=== PATIENT | female | born 1960 | race Caucasian/White ===

== ENCOUNTER 2020-05-24 06:50 | Emergency (ER) | payer BC, SELFPAY ==
[2020-05-24 06:55] VITALS: BP 117/73; PULSE 62; RESP 18; TEMP 36.4; O2SAT 98
--- NOTE | 2020-05-24 06:57 | ED.GENADUL_ITS ---
Discharge Plan Disposition Patient Disposition: HOME Condition: Stable Discharge Details Chief Complaint: RashLesion Clinical Impression: Shingles ED Provider: Darian Centeno Home Meds and New Rx's Prescriptions: New prednisone 20 mg tablet 60 mg PO DAILY 4 Days Qty: 12 RF: 0 valacyclovir [Valtrex] 1 gram tablet 1,000 mg PO Q8H Qty: 21 RF: 0 No Action No Known Home Meds RF: 0 Discharge Instructions Instructions: Shingles (ED) Additional Instructions: you can use tylenol, ibuprofen and lidocaine patches for pain as needed for itching you can use topical hydrocortisone if you have severe worsening pain, fevers difficulty breathing return to the emergency department Medical Decision Making 60 yo female comes in with rash on left upper abdomen for 2 days that is itching and mildly painful, no fevers or sytemic symptoms. She has 3 vesciular patches on erythema that is consistent with shingles, no sloughing or mucous membrane involvement, will start antivirals and prednisone, return precautions given Differential Diagnosis Differential Diagnosis: shingles, dermatitis HPI General Mode of arrival: ambulatory . Date/Time Provider Initiated Documentation: 05/24/20 06:51 . Limitations to Documentation: no limitations . Information obtained by: patient . History of Present Illness 60 year old F presents to the emergency department with the chief complaint of rash, described as moderate, Patient started experiencing this day(s) (2) and it has been constant. No relieving factors improve symptom(s), No exacerbating factors reported . Patient notes no other symptoms.. Related Data Home Medications Medication Instructions Recorded Confirmed Unknown [No Known Home Meds] 05/24/20 05/24/20 prednisone 60 mg PO DAILY 4 Days #12 tab 05/24/20 valacyclovir [Valtrex] 1,000 mg PO Q8H #21 tab 05/24/20 Previous Rx's Medication Instructions Recorded prednisone 60 mg PO DAILY 4 Days #12 tab 05/24/20 valacyclovir [Valtrex] 1,000 mg PO Q8H #21 tab 05/24/20 Allergies Allergy/AdvReac Type Severity Reaction Status Date / Time No Known Allergies Allergy Unverified 05/24/20 06:59 Review of Systems All systems reviewed & are unremarkable except as noted in HPI and below Constitutional Constitutional: Denies chills, Denies fever(s) and Denies weakness Cardiovascular Cardiovascular: Denies chest pain and Denies dyspnea Respiratory Respiratory: Denies cough and Denies dyspnea Gastrointestinal Gastrointestinal: Denies abdominal pain, Denies nausea and Denies vomiting Genitourinary Genitourinary: Denies dysuria Musculoskeletal Musculoskeletal: Denies joint swelling Neurologic Neurologic: Denies weakness Psychiatric Psychiatric: Denies depression PFSH Social History Smoking/Tobacco Use Status: Former Tobacco Use Alcohol Intake: current Alcohol Intake frequency: 3 or more drinks per day Drug use: Never Substance use type: does not use Do you feel safe at home: Yes Do you feel safe in your relationship?: Yes Exam Const General: no acute distress Orientation: alert HENMT Head: normal to inspection Ears: external ears normal General nose exam: external nose normal Mouth: moist mucous membranes Eyes General: appearance normal, both eyes and all related structures Neck Neck: normal visual inspection Resp Effort & Inspection: normal respiratory effort and able to speak in complete sentences Cardio Rate: regular rate Skin General skin exam: elasticity normal Neuro General: patient alert and patient oriented x3 Extrem General: normal to inspection Psych Mental Status: mental status grossly normal
== END 2020-05-24 07:07 | disposition home or self-care (01) ==
LOC: ER 08:54
PROVIDERS: Emergency Provider Emergency Medicine
DX: B02.9 Zoster without complications (principal)
CPT/HCPCS: 99283

== ENCOUNTER 2020-06-18 19:17 | Emergency (ER) | payer BC, SELFPAY ==
[2020-06-18 19:27] VITALS: BP 119/79; PULSE 55; RESP 18; TEMP 36.8; O2SAT 99
[2020-06-18 19:32] VITALS: RESP 16
--- NOTE | 2020-06-18 20:03 | NUR.NOTE ---
Nursing Note: REFERAL COPY PUT IN CM BOX 06/18/20
--- NOTE | 2020-06-18 20:08 | ED.GENADUL_ITS ---
Discharge Plan Disposition Patient Disposition: HOME Condition: Good Discharge Details Chief Complaint: GenMedical Clinical Impression: Shingles, Nerve pain Primary Care Provider: Xuan,Local ED Provider: Yung Pal Home Meds and New Rx's Prescriptions: New gabapentin [Neurontin] 300 MG capsule 300 mg PO TID Qty: 90 RF: 0 capsaicin 0.1 % cream 1 applic TP BID Qty: 42.5 RF: 0 No Action No Known Home Meds RF: 0 Discharge Instructions Instructions: Shingles (ED) Additional Instructions: Please take the capsaicin cream as directed. If you do not have any improvement with this please take the gabapentin as directed. We have placed a referral for you for a new primary care provider in this area. He should be contacted by their office or our resident care manager the next 1 to 2 weeks. If you notice any worsening of your symptoms, or any new symptoms such as vomiting, diarrhea, fever, chills, shortness of breath, chest pain, numbness, weakness, or fainting , please return immediately to the emergency department for reevaluation. Please follow up with your primary care provider as soon as possible for reassessment and reevaluation. As always, it was a pleasure participating in your medical care today. Discharge Data Discharge Date/Time-TO BE ENTERED AT DEPARTURE: 06/18/20 20:20 Medical Decision Making This is a pleasant 60-year-old female no significant past medical history who presents today for evaluation of left-sided skin burning and pain. Patient states that she did have shingles over the past month, this resolved, the rash is nearly completely abated, however now she has intermittent burning and stabbing pain in the skin itself. She denies any actual chest pain, chest tightness, significant arm neck or shoulder pain. She denies any bandlike sensation around the chest. She denies any history of cardiac disease, or any family history of cardiac disease. She denies any concerning red flags of hypertension, high cholesterol, or diabetes. Pain is made worse with palpation of the skin, and is improved with exercise, exertion, and stretching and time. She denies any trauma. No other complaints at this time. No other modifying factors. No history of tobacco abuse. She has been using topical hydrocortisone cream which she states has not significantly changed her symptoms. She is currently residing up here in [place] although she normally lives in [place]. She does not have a PCP in this area. The symptoms are in her left chest region which was the location of the rash. Rash is notably benign, and appears to show evidence of nearly completely healed post shingles rash on the left-hand side. 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 Signs and symptoms clinically inconsistent with cardiac ACS. Will prescribe capsaicin ointment, as well as gabapentin. Will set up for PCP. I have extensively reviewed the treatment plan and discharge instructions with the patient. I have addressed all patient concerns at this time. The patient was made aware of what symptoms to monitor for that would warrant a return to the emergency department. Discussed the plan with the patient, they demonstrate verbal understanding and agreement with our assessment and plan at this time. HPI General Date/Time Provider Initiated Documentation: 06/18/20 19:37 . HPI Narrative: This is a pleasant 60-year-old female no significant past medical history who presents today for evaluation of left-sided skin burning and pain. Patient states that she did have shingles over the past month, this resolved, the rash is nearly completely abated, however now she has intermittent burning and stabbing pain in the skin itself. She denies any actual chest pain, chest tightness, significant arm neck or shoulder pain. She denies any bandlike sensation around the chest. She denies any history of cardiac disease, or any family history of cardiac disease. She denies any concerning red flags of hypertension, high cholesterol, or diabetes. Pain is made worse with palpation of the skin, and is improved with exercise, exertion, and stretching and time. She denies any trauma. No other complaints at this time. No other modifying factors. No history of tobacco abuse. She has been using topical hydrocor tisone cream which she states has not significantly changed her symptoms. She is currently residing up here in [place] although she normally lives in [place]. She does not have a PCP in this area. The symptoms are in her left chest region which was the location of the rash. Related Data Home Medications Medication Instructions Recorded Confirmed Unknown [No Known Home Meds] 05/24/20 06/18/20 capsaicin 1 applic TP BID #42.5 gm 06/18/20 gabapentin [Neurontin] 300 mg PO TID #90 cap 06/18/20 Previous Rx's Medication Instructions Recorded capsaicin 1 applic TP BID #42.5 gm 06/18/20 gabapentin [Neurontin] 300 mg PO TID #90 cap 06/18/20 Allergies Allergy/AdvReac Type Severity Reaction Status Date / Time No Known Allergies Allergy Unverified 05/24/20 06:59 General Stated Complaint: GenMedical TATO: 4 Review of Systems All systems reviewed & are unremarkable except as noted in HPI and below PFSH Social History Smoking/Tobacco Use Status: Former Tobacco Use Alcohol Intake: current Alcohol Intake frequency: 3 or more drinks per day Drug use: Never Substance use type: does not use Do you feel safe at home: Yes Do you feel safe in your relationship?: Yes Exam Narrative Exam Narrative: 1.Const: Well-nourished, Well-developed, appearing stated age 2.Eyes: PERRL, no conjunctival injection, and symmetrical lids. 3.ENT: Atraumatic external nose and ears. Moist MM. Neck: Symmetric, trachea midline, No thyromegaly. 4.CVS: +S1/S2, No murmurs or gallops. Peripheral pulses 2+ and equal in all extremities. Brisk capillary refill in all extremities. 5.RESP: Unlabored respiratory effort. Clear to auscultation bilaterally. No wheezes rales or rhonchi 6.GI: Soft, Nontender/Nondistended, No hepatosplenomegaly. No guarding or rebound. 7.MSK: Normocephalic/Atraumatic, Extremities w/o deformity or ttp No cyanosis or clubbing, Normal movement of all extremities 8.Skin: Warm, Dry. No rashes or lesions. There is evidence of a well-healed shingles rash in probably the T6 or T7 dermatome on the left wrapping around from the back to the midline. No extension past midline. Lesions are nearly completely rel well-healed with only minimal evidence of residual pigmenting of skin. No other abnormalities. Negative Nikolsky sign. No large vesicles or bulla. No palpable purpura. No oral lesions. No mucosal lesions. No evidence of severe cellulitis. No evidence of vaccine preventable rash. 9.Neuro: energy management specialist II-XII grossly intact. Sensation grossly intact, no focal neurologic deficits. 10.Psych: (AAO) x3. Appropriate mood and affect Course Vital Signs Vital signs: Vital Signs Temperature 36.8 C 06/18/20 19:27 Pulse 55 L 06/18/20 19:27 Respiratory Rate 18 06/18/20 19:27 Blood Pressure 119/79 06/18/20 19:27 Pulse Oximetry 99 06/18/20 19:27 Temperature 36.8 C 06/18/20 19:27 Temperature Source Skin 06/18/20 19:27 Pulse 55 L 06/18/20 19:27 Respiratory Rate 16 06/18/20 19:32 Respiratory Effort 06/18/20 19:32 Respiratory Depth Normal 06/18/20 19:32 Respiratory Pattern Normal 06/18/20 19:32 Blood Pressure 119/79 06/18/20 19:27 Blood Pressure Position Sitting 06/18/20 19:27 Pulse Oximetry 99 06/18/20 19:27 Oxygen Delivery Method Room Air 06/18/20 19:27 Oxygen Flow Rate 0 06/18/20 19:27 Pain Level 4 06/18/20 19:27
[2020-06-18 20:22] VITALS: BP 119/79; PULSE 55; RESP 16; TEMP 36.8; O2SAT 99
== END 2020-06-18 20:20 | disposition home or self-care (01) ==
LOC: ER 20:24
PROVIDERS: Emergency Provider Student in an Organized Health Care Education/Training Program
DX: B02.9 Zoster without complications (principal)
CPT/HCPCS: 99283

== ENCOUNTER 2020-09-23 03:04 | Outpatient (CLI) | payer BC, SELFPAY ==
[2020-09-23 17:37] LABS: Hemoglobin A1C 5.5 % (<5.7)
[2020-09-23 18:25] LABS: Calculated LDL 130 mg/dL (<100); Cholesterol 252 mg/dL (<200); HDL Cholesterol 98 mg/dL (40-60); Triglyceride 123 mg/dL (<150)
== END 2020-09-23 03:24 ==
PROVIDERS: PCP Nurse Practitioner; Visit Provider Nurse Practitioner
DX: Z13.1 Encounter for screening for diabetes mellitus (principal); Z13.6 Encounter for screening for cardiovascular disorders
CPT/HCPCS: 36415; 80061; 83036

== ENCOUNTER 2020-11-10 00:07 | Outpatient (CLI) | payer BC, SELFPAY ==
--- NOTE | 2020-11-10 09:22 | DI.MAMMO_ITS ---
EXAM: MG MAMMO SCREENING CLINICAL HISTORY: screening,Z12.39 TECHNIQUE: Bilateral full field digital CC and MLO mammographic images were obtained with 3D tomosyn thesis and utilizing computer aided detection (CAD). COMPARISON: Available for comparison. FINDINGS: Masses/Architectural Distortion: None seen. Microcalcifications: No suspicious pleomorphic-type are seen. Skin Thickening/Nipple Retraction: None. IMPRESSION: 1. No significant interval change with no specific features of malignancy noted. 2. Unless there is more urgent need, screening mammography is recommended, as per [place] [employer] guidelines. BI-RADS Category 1 - Negative Breast Density - Category C - Heterogeneously dense Breast density category C or D implies that the patient has dense breast tissue. Dense breast tissue is very common and is not abnormal but dense breast tissue can make it harder to find cancer on a ma mmogram. Also, dense breast tissue may increase their breast cancer risk. This information about the result of the mammogram report was provided to the patient to raise their awareness. Use this report when you speak with the patient about their risks for breast cancer, which includes their family hist ory. At that time, you may recommend for more screening tests (Ultrasound or MRI) as they might be us eful based on their risk. A negative radiographic report should not delay biopsy if a dominant or clinically suspicious mass is present. Up to ten percent of cancers are not identified on mammography. A negative report may reinforce clinical impression. Adenosis and dense breasts may obscure an underlying neoplasm. False positive reports average 6 to 10%. Patient will receive a letter notifying them of these results.
== END 2020-11-10 00:27 ==
PROVIDERS: PCP Nurse Practitioner; Visit Provider Nurse Practitioner
DX: Z12.31 Encounter for screening mammogram for malignant neoplasm of breast (principal)
CPT/HCPCS: 77063; 77067

== ENCOUNTER 2020-11-19 03:29 | Outpatient (CLI) | payer BC, SELFPAY ==
[2020-11-21 15:56] LABS: COVID-19 RT-PCR UVMMC Result Negative (Negative)
== END 2020-11-19 03:49 ==
PROVIDERS: PCP Nurse Practitioner; Visit Provider Surgery
DX: Z11.59 Encounter for screening for other viral diseases (principal); Z01.818 Encounter for other preprocedural examination
CPT/HCPCS: U0003

== ENCOUNTER 2020-11-23 07:00 | Day surgery (SDC) | payer BC, SELFPAY ==
--- NOTE | 2020-11-23 06:55 | W.COLOREPORT ---
Date of service: 11/23/20 Time of Service: 08:12 Colonoscopy Report Date of procedure: 11/23/20 Pre-op diagnosis general: Hx of polyps Post-op diagnosis procedure note: same Procedure: Colonoscopy with polypectomy Surgeon: Elizabeth Bhakta Anesthesia proc note operative: other (General/ASA 2/Rupinder Pike, MONIE) Estimated blood loss (mL): 3 Pathology: other (Sigmoid polyp, transverse polyps x2) Complications: None Disposition: same day Indications: The patient is here for Colonoscopy pre-op. Her last screening was in 2013 and was unremarkable. Colonoscopy from 2011 was remarkable for a single tubular adenomatous polyp. She has no family history of colon cancer. She has not had any bowel habit changes. -Discussed colonoscopy bowel prep as well as the procedure. Discussed possible complications of the procedure to include bleeding, pain, perforation, missed small lesion/polyp, sore throat, aspiration and adverse reaction to the medications. Questions were answered to patient?s satisfaction. No guarantees were implied or given. Prep: Miralax/Dulcolax Procedure Start Time: 08:12 Procedure End Time: 08:40 Retraction Time: 16 minutes Findings: 3 small sessile polyps Procedure Description: After informed consent was obtained the patient was taken to the procedure room and placed in a left decubitous position. Monitors were applied and a time out was done. The patients name, date of , procedure, allergies to medications and metal in their body was reviewed. The patient was then sedated. Once sedated and comfortable a rectal exam was done. External exam was normal. Internal exam revealed a normal sphincter tone and no palpable masses. The scope was then introduced and retro-flexed. No internal hemorrhoids were identified. The scope was then advanced to the cecum without difficulty. The ileocecal valve and appendiceal orifice were identified. The prep was good. The scope was then slowly retracted over 16 minutes back into the rectum. Polyps were removed with cold forceps in the proximal transverse colon, distal transverse colon and sigmoid colon. The scope was removed and the patient was woken up and taken back to Same day surgery in stable condition. The patient tolerated the procedure well and there were no immediate complications. Follow up: The patient should follow up in 3-5 years unless they develop changes in bowel habits or other new gastrointestinal complaints.
--- NOTE | 2020-11-23 06:56 | W.PM.DSUDISC ---
Discharge Plan Disposition Patient Disposition: HOME Condition: Good Discharge Details Reason For Visit: colonoscopy Attending Provider: Elizabeth Bhakta Primary Care Provider: Camille Huertas Home Meds and New Rx's Prescriptions: Continued cholecalciferol (vitamin D3) 25 mcg (1,000 unit) capsule 25 mcg PO DAILY RF: 0 Discontinued polyethylene glycol 3350 17 gram/dose powder 238 g PO ONCE Qty: 238 RF: 0 bisacodyl [Dulcolax (bisacodyl)] 5 mg tablet,delayed release (DR/EC) 5 mg PO ONCE Qty: 4 RF: 0 Discharge Instructions Instructions: Colorectal Polyps (DC) Additional Instructions: Findings: 3 small polyps Follow up: 3-5 years Please call if you develop: fevers >101.5 Nausea or Vomiting Abdominal pain that is not transient DAY SURGERY UNIT POST ENDOSCOPY INSTRUCTIONS 1. Because there will be medication in your system for the next 24 hours, you may feel a little sleepy. Your coordination will be affected. Therefore: a. Do not drive or operate dangerous equipment for 24 hours. b. Do not drink alcohol beverages for 24 hours (not even beer). c. Plan to go home and rest for the day. 2. Generally there are no restrictions on your activity after a day or so has gone by, but you may feel a bit fatigued for a few days. 3 After you arrive home you may have a light meal and return to a normal diet as you can tolerate it without feeling sick to your stomach. 4. After surgery, you may feel pain or discomfort. This should be only transient, but if it persists please contact your doctor. 5. If there are any questions regarding the findings of your procedure, please feel free to contact your doctor. 6. If you are unable to contact your doctor with a problem, contact the hospital at [phone]. 7. Continue all your regular medications unless directed otherwise. I understand the above instructions and have no questions. Signature of Patient or Responsible Adult Escort Date/Time Name of Responsible Adult Escort Signature of Nurse Date/Time Activity:: Activity as Tolerated Diet:: As Tolerated Discharge Orders Discharge Orders: Discharge Order (Routine); Ordered 11/23/20 Ordered By: Elizabeth Bhakta
[2020-11-23 07:07] VITALS: BP 101/60; PULSE 55; RESP 18; TEMP 36.6; O2SAT 99
[2020-11-23] MEDS: Lactated Ringers 1,000 ML 80 ML IV (07:34)
--- NOTE | 2020-11-23 08:20 | BOWEL_PTH ---
PATIENT: Carole Gill LOC: [facility] U#:[id number] AGE/SX: 60/F ROOM: RE11/23/[address]: Elizabeth Bhakta MD : 1960 BED: DIS: 11/23/2020 SPEC #: [id number] RECD: 11/23/20 12:40 STATUS: CHRISTIANO RE #: [id number] ELVA: 11/23/20 08:[address]: Elizabeth Bhakta DEPT: Surgical Specimen RECD BY: Bernadette Moreno ENTERED: 11/23/20 12:41 SP TYPE: Bowel OTHR DR: Camille Huertas, PhD [employer] STILL OPERATOR Tissues: 1 - BIOPSY BOWEL 2 - BIOPSY BOWEL 3 - BIOPSY BOWEL Procedures: GROSS AND MICRO LEVEL 4 Comments: [id number]
[2020-11-23 09:11] VITALS: BP 102/64; PULSE 83; RESP 16; TEMP 36.5; O2SAT 99
== END 2020-11-23 09:30 | disposition home or self-care (01) ==
LOC: SUR 07:00
PROVIDERS: PCP Nurse Practitioner; Visit Provider Surgery
PROC: 0DJD8ZZ Inspection of Lower Intestinal Tract, Via Natural or Artificial Opening Endoscopic (ICD-10-PCS; CPT 45378; principal; 2020-11-23 08:30)
DX: Z12.11 Encounter for screening for malignant neoplasm of colon (principal); Z86.011 Personal history of benign neoplasm of the brain; D12.3 Benign neoplasm of transverse colon
CPT/HCPCS: 45380; 88305; J2001

== ENCOUNTER 2021-03-22 09:06 | Outpatient (REF) | payer BC, SELFPAY ==
--- NOTE | 2021-03-22 08:45 | PAPFT_PTH ---
PATIENT: Carole Gill LOC: [facility] U#:[id number] AGE/SX: 60/F ROOM: RE03/22/[address]: ROMEO Patterson : 1960 BED: DIS: 03/22/2021 SPEC #: [id number] RECD: 03/22/21 18:34 STATUS: CHRISTIANO REAwais #: [id number] ELVA: 03/22/21 08:[address]: Loida Madison DEPT: [facility] Cytology RECD BY: Bernadette Moreno ENTERED: 03/22/21 18:34 SP TYPE: PAPFT AMY DR: Camille Huertas, PhD HAM STRINGER Tissues: 1 - CX/ENDOCX FOR PAP SMEARS Procedures: PAP THIN PREP/[facility] Screening HPV DNA PROBE Comments: [id number]
== END 2021-03-22 09:07 | disposition home or self-care (01) ==
LOC: LBN 09:06
PROVIDERS: PCP Nurse Practitioner; Visit Provider Nurse Practitioner Family
DX: Z12.4 Encounter for screening for malignant neoplasm of cervix (principal); Z11.51 Encounter for screening for human papillomavirus (HPV)
CPT/HCPCS: 88142; 87624

== ENCOUNTER 2021-03-30 03:39 | Outpatient (CLI) | payer BC, SELFPAY ==
[2021-03-30 09:30] LABS: ALT 30 U/L (14-59); AST 28 U/L (15-37); Albumin 4.3 g/dL (3.4-5.0); Alkaline Phosphatase 98 U/L (46-116); Bilirubin, Direct 0.1 mg/dL (0.0-0.2); Bilirubin, Total 0.5 mg/dL (0.2-1.0); Total Protein 7.4 g/dL (6.4-8.2)
[2021-03-31 11:39] LABS: Hepatitis A Antibody IgM Negative (Negative); Hepatitis B Core Antibody Negative (Negative); Hepatitis B surface Ag Negative (Negative); Hepatitis C Ab w Rflx HCV PCR Negative (Negative)
== END 2021-03-30 03:40 | disposition home or self-care (01) ==
LOC: LBO 03:39
PROVIDERS: PCP Nurse Practitioner; Visit Provider Nurse Practitioner
DX: Z00.00 Encounter for general adult medical examination without abnormal findings (principal); Z11.59 Encounter for screening for other viral diseases
CPT/HCPCS: 36415; 80076; 86704; 86709; 86803; 87340

== ENCOUNTER → 2022-05-06 00:21 | Outpatient (CLI) | payer BC, SELFPAY ==
--- NOTE | 2022-05-06 08:08 | DI.RAD_ITS ---
Exam(s) XR HIP LT COMPLETE AP PELVIS EXAM: XR HIP LT COMPLETE AP PELVIS CLINICAL HISTORY: LT HIP PAIN, M25.552 TECHNIQUE: COMPARISON: No exams were available for comparison FINDINGS: Two views were obtained. The cartilaginous joint spaces of the hips may be minimally narrowed bilate rally superiorly. Minimal marginal osteophyte for may garcía of the acetabulum noted bilaterally. Fem oral heads are well maintained bilaterally. There are minimal degenerative changes of the SI joints. 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 RADIATION DOSE DELIVERED: Total DLP
== END ==
PROVIDERS: PCP Nurse Practitioner; Visit Provider Nurse Practitioner
DX: M16.0 Bilateral primary osteoarthritis of hip (principal)
CPT/HCPCS: 73502

== ENCOUNTER 2023-05-05 03:10 | Outpatient (CLI) | payer BC, SELFPAY ==
[2023-05-05 16:52] LABS: Hemoglobin A1C 5.4 % (<5.7)
[2023-05-05 17:10] LABS: HCT 38.1 % (36.0-46.0); HGB 12.6 g/dL (11.2-15.7); MCH 30.7 pg (27.0-33.0); MCHC 33.1 % (32.0-36.0); MCV 93 fL (80-95); MPV 10.5 fL (8.0-11.0); Platelet Count 218 10^3/uL (130-400); RBC 4.11 10^6/uL (3.93-5.22); RDW 12.6 % (11.7-14.6); RDW-SD 42.7 fL; WBC 7.86 10^3/uL (4.4-10.8)
[2023-05-05 18:26] LABS: Anion Gap 5.9 mmol/L (3-11); BUN 17 mg/dL (7-18); CO2 30.1 mmol/L (21.0-32.0); Calcium 9.5 mg/dL (8.5-10.1); Calculated LDL 124 mg/dL (<100); Chloride 104 mmol/L (98-107); Cholesterol 230 mg/dL (<200); Estimated GFR 62.91 (mL/min/1.73m2); Glucose 74 mg/dL (74-106); HDL Cholesterol 98 mg/dL (40-60); Potassium 3.8 mmol/L (3.5-5.1); Sodium 140 mmol/L (136-145); Triglyceride 40 mg/dL (<150)
== END 2023-05-05 03:11 | disposition home or self-care (01) ==
LOC: LBO 03:10
PROVIDERS: PCP Nurse Practitioner Family; Visit Provider Nurse Practitioner Family
DX: Z00.00 Encounter for general adult medical examination without abnormal findings (principal); Z13.0 Encounter for screening for diseases of the blood and blood-forming organs and certain disorders involving the immune mechanism; Z13.1 Encounter for screening for diabetes mellitus; Z13.220 Encounter for screening for lipoid disorders; Z13.29 Encounter for screening for other suspected endocrine disorder
CPT/HCPCS: 36415; 80048; 80061; 85027; 83036; 84443

== ENCOUNTER 2023-11-30 11:19 | Day surgery (SDC) | payer MEDICARE, BC, SELFPAY ==
--- NOTE | 2023-11-30 09:25 | W.PM.DSUDISC ---
Date of service: 11/30/23 Time of Service: 09:25 Discharge Plan Disposition Patient Disposition: Home Condition: Good Discharge Details Reason For Visit: Screening colonoscopy Attending Provider: Nir Edwards Primary Care Provider: Georgina Fallon Home Meds and New Rx's Prescriptions: Discontinued bisacodyl [Dulcolax (bisacodyl)] 5 mg tablet,delayed release (DR/EC) 5 mg PO ONCE Qty: 4 0RF Rx Instructions: Colonoscopy Bowel Prep- Per Instructions polyethylene glycol 3350 17 gram/dose powder 238 g PO ONCE Qty: 238 0RF Rx Instructions: Colonoscopy Bowel Prep- Per Instructions No Action No Known Home Meds Discharge Instructions Instructions: Colorectal Polyps (GEN) Additional Instructions: Carole, we were able to complete your colonoscopy today without any difficulty. I did find for polyps, but all were quite small. I removed them all completely without any issues. Once I have the reports on the polyp pathology, I will be in touch with recommendations for your next colonoscopy 1. If tolerated, consume a soft, low fiber diet for 1-2 days. 2[address] Do not drive, drink alcohol, operate machinery, make critical decisions, or do activities that require coordination or balance for 24 hours. 3. Because air was put into your colon during the procedure, expelling air from your rectum (passing gas or farting) is normal. 4. You may not have a bowel movement for 1-3 days because of the colonoscopy prep. This is normal. 5. Go directly to the emergency room if you notice any of the following: Develop chills (warm to touch), or if you have a thermometer and your temperature is above 101 Difficulty breathing or difficultly swallowing Persistent vomiting Severe abdominal pain, other than gas cramps Severe chest pain Black, tarry stools Any bleeding ? exceeding one tablespoon 6. Call your physician if the site where your intravenous was started becomes red, swollen, painful, and warm to touch. 7. Your physician has reviewed your pre-procedure medications. Please continue to take those medications as previously ordered. You will be given specific information/education regarding any changes to your medications before leaving. Activity:: Activity as Tolerated Diet:: As Tolerated Discharge Orders Discharge Orders: Discharge Order (Routine); Ordered 11/30/23 Ordered By: Nir Edwards DS: Diagnosis Discharge Diagnosis (1) Screen for colon cancer: Status: Acute Asessment and Plan: Follow-up on polypectomy results
--- NOTE | 2023-11-30 09:27 | COLE_ITS ---
Date of service: 11/30/23 Time of Service: 13:39 Colonoscopy Report Date of procedure: 11/30/23 Pre-op diagnosis general: Screening colonoscopy Post-op diagnosis procedure note: other (Colorectal polyps) Procedure: Colonoscopy with polypectomy Surgeon: Nir Edwards Anesthesia Type: General:No Airway Estimated blood loss (mL): 10 Pathology: other (0.25 cm cecal polyp, 0.5 cm polyp at 55 cm, 0.25 cm polyp at 30 cm, 0.25 cm rectal polyp.) Complications: None Disposition: same day Indications: Carole is 63 years old. She has had a past medical history significant for tubular adenomas. She is here for her next screening colonoscopy Prep: Miralax/Dulcolax Procedure Start Time: 13:10 Procedure End Time: 13:32 Retraction Time: 16 Findings: 0.25 cm cecal polyp, 0.5 cm polyp at 55 cm, 0.25 cm polyp at 30 cm, 0.25 cm rectal polyp. Procedure Description: After the induction of monitored anesthetic care, and with the patient in left lateral decubitus position, I began by performing an external anorectal exam.? Perineum and skin were normal, as was the anal verge.? There was no evidence of external hemorrhoids.? Next, I performed a digital rectal exam.? I did not appreciate any abnormal findings.? Next, I advanced a colonoscope into the rectal vault.? I performed retroflexion.? This was normal.? Using insufflation, I then advanced the colonoscope beyond the rectal folds and into the sigmoid colon before advancing towards the cecum.? The scope was noted to be in the cecum by identification of the ileocecal valve and appendiceal orifice.? There was a less than 0.25 cm slightly pedunculated polyp in the cecum. I removed this with cold forceps without any issue. There was minimal bleeding here. I then began withdrawing the colonoscope using repeated irrigation as necessary for full evaluation of the colonic mucosa. Around 55 cm from the anal verge I identified a 0.5 cm polyp. ?It appeared flat in character. ?I was able to remove this with a cold forcep polypectomy. ?I examined the site, and there was minimal bleeding. ?Once this was completed, I continued to withdraw the scope and examine the remainder of the colonic mucosa.? I also found polyps at 30 cm and 1 polyp within the rectum. Both of these were less than 0.25 cm. Both were mostly flat. I removed both of these polyps with cold forceps as well. Once the scope was withdrawn to the level of the rectum, great care was taken to examine portions of the rectal folds.? Finally, the scope was withdrawn and the patient was brought to the same-day surgery recovery unit as the anesthetic wore off. ?The findings and instructions were shared with the patient prior to discharge. [place] Bowel Prep [place] Bowel Prep Right Colon: 3 Left Colon: 3 Transverse Colon: 3 Total Score: 9
[2023-11-30 11:45] VITALS: BP 104/73; PULSE 61; RESP 16; TEMP 36.3; O2SAT 99
[2023-11-30] MEDS: Lactated Ringers 1,000 ML 80 ML IV (12:00)
--- NOTE | 2023-11-30 12:15 | W.ANESPRE ---
General Info Date of Service Date Performed: 11/30/23 Height: 5 ft 2 in Weight: 62.5 kg Body Mass Index (BMI): 25.2 Surgical Procedure: Operation Date: 11/30/23 13:05 Proposed Procedure Side Surgeon p Colonoscopy Nir Edwards MD Meds Allergies and Home Medications Allergies Allergy/AdvReac Type Severity Reaction Status Date / Time No Known Allergies Allergy Verified 11/30/23 12:10 Home Medication Medication Instructions Recorded Unknown [No Known Home Meds] 11/30/23 Current Visit Medications: Current Medications Generic Name Dose Route Start Last Admin Trade Name Freq PRN Reason Stop Dose Admin Hyoscyamine Sulfate 0.125 mg 11/30/23 09:30 Hyoscyamine 0.125 Mg Sl/Oral/Chew SL 12/30/23 09:29 DIRECTED PRN Ringer's Solution 1,000 mls @ 80 mls/hr 11/30/23 06:00 11/30/23 12:00 IV 12/29/23 23:59 80 mls/hr INFUSION YUNG Administration IV Miscellaneous Supplies 1 each 11/30/23 06:00 Iv Access IV 12/29/23 23:59 DIRECTED YUNG Ondansetron HCl 4 mg 11/30/23 09:30 Ondansetron 4 Mg/2 Ml Vial IVP 12/30/23 09:29 Q4H PRN PRN Nausea / Vomiting Sodium Chloride 0 ml 11/30/23 06:00 Normal Saline Flush 10 Ml Syr IV 12/29/23 23:59 PRN PRN Sodium Chloride 0 ml 11/30/23 06:00 Normal Saline 10 Ml Vial IJ 12/29/23 23:59 DIRECTED PRN Sterile Water 0 ml 11/30/23 06:00 Water,Injection,Sterile 10 Ml Vial IJ 12/29/23 23:59 DIRECTED PRN PFSH Active Problems Active Problems: Problem Status Onset Code Screen for colon cancer Z12.11 Bilateral sensorineural hearing loss H90.3 Medical History Medical History History of herpes simplex infection age 22 Left hip pain Tubular adenoma of colon (~10/2020) Sessile colonic polyp (~10/2020) Surgical History Surgical History Hx of colonoscopy Tobacco Smoking/Tobacco Use Status: Never Passive smoking exposure: Yes Second hand exposure: Yes Alcohol Alcohol Intake: current Alcohol intake frequency: 0-2 drinks per day Alcohol type: beer and wine Substance Use Substance use: Never Substance use type: does not use Details: Usually has 2 glasses of wine a night, but is currently doing a november Vital Signs and Lab Results Vital Signs Most Recent Vital Signs in EMR: Most Recent Vital Signs Temp Pulse Resp BP Pulse Ox 36.3 C L 61 16 104/73 99 11/30/23 11:45 11/30/23 11:45 11/30/23 11:45 11/30/23 11:45 11/30/23 11:45 Lab Results Blood Type / Crossmatch: No Data to Display Complete Blood Count: No Data to Display Complete Metabolic Panel: No Data to Display Liver Function Panel: No Data to Display Coagulation Panel: No Data to Display Cardiac Panel: No Data to Display Arterial Blood Gas: No Data to Display Venous Blood Gas: No Data to Display Pancreas Panel: No Data to Display Thyroid Panel: No Data to Display Infectious Disease: No Data to Display Blood Cultures: No Data to Display Toxicology Panel: No Data to Display Anesthesia Assessment and Plan Anesthesia History Personal History: No History of Anesthesia Complications Family History: No Family History of Anesthesia Complications Exercise Tolerance Exercise Tolerance: Metabolic Equivalents>4 Pertinent Negatives Pertinent Negatives: No Symptoms of GERD, No Major Cardiovascular Symptoms or Complaints and No Major Pulmonary Symptoms or Complaints Cardiac & Pulmonary Exam Cardiac Exam: Normal S1/S2 Heart Sounds Pulmonary Exam: Clear Bilateral Breath Sounds Implantable Cardiac Device Does patient have a Pacemaker or an ICD?: No Airway Exam Known Difficult Airway: No Mallampati Class: 2 Mouth Opening: Normal (> 3cm) Thyromental Distance: Greater than 3 cm Neck Range of Motion: Full ROM Neck Circumference: Normal Teeth Condition: Normal Dentition ASA Classification ASA Score: ASA 2 Emergency Case?: No NPO Status NPO Status: NPO Clears >2 hours, Solids >8 hours Anesthesia Plan Resuscitation Status: Full Code Anesthesia Technique: General Anesthesia Airway Planned: Natural Airway Monitors Used: Standard Monitors
[2023-11-30 12:17] VITALS: BMI 25.2
--- NOTE | 2023-11-30 13:20 | BOWEL_PTH ---
PATIENT: Carole Glil LOC: [facility] U#:[id number] AGE/SX: 63/F ROOM: RE11/30/[address]: Nir Edwards MD : [id number] BED: DIS: 11/30/2023 SPEC #: [id number] RECD: 11/30/23 16:22 STATUS: CHRISTIANO RE #: [id number] ELVA: 11/30/23 13:[address]: Nir Edwards DEPT: Surgical Specimen RECD BY: Bernadette Moreno ENTERED: 11/30/23 16:22 SP TYPE: Bowel OTHR DR: Georgina Fallon, VP PRODUCT Tissues: 1 - BIOPSY BOWEL 2 - BIOPSY BOWEL 3 - BIOPSY BOWEL 4 - BIOPSY BOWEL Procedures: GROSS AND MICRO LEVEL 4 Comments: [id number]
[2023-11-30 13:38] VITALS: BP 103/70; PULSE 66; RESP 16; TEMP 36.2; O2SAT 100
[2023-11-30 14:17] VITALS: BP 105/58; PULSE 67; RESP 16; TEMP 36.4; O2SAT 99
--- NOTE | 2023-11-30 15:15 | W.ANESPOSTOP ---
Postoperative Evaluation Date, Time and Location Date Performed: 11/30/23 Time Performed: 13:55 Patient Location: Day Surgery Unit Vital Signs Most Recent Imported Vital Signs: Most Recent Vital Signs Temp Pulse Resp BP Pulse Ox 36.4 C L 67 16 105/58 L 99 11/30/23 14:17 11/30/23 14:17 11/30/23 14:17 11/30/23 14:17 11/30/23 14:17 Pain Score Most Recent Pain Score: Most Recent Pain Score Pain Level 0 11/30/23 14:17 Assessment Mental Status: Awake (Alert & Oriented to Patient Baseline) Airway and Respiratory Function: Patent airway with normal (patient baseline) respiratory exam Cardiovascular Function: Hemodynamically Stable Hydration Status: Adequately Hydrated Nausea & Vomiting: No Nausea or Vomiting Pain: Pt. Denies Any Pain Peripheral Nerve Block: Patient did not receive a nerve block
== END 2023-11-30 15:05 | disposition home or self-care (01) ==
LOC: SUR 11:28
PROVIDERS: PCP Nurse Practitioner Family; Visit Provider Surgery
PROC: 0DJD8ZZ Inspection of Lower Intestinal Tract, Via Natural or Artificial Opening Endoscopic (ICD-10-PCS; CPT 45378; principal; 2023-11-30 13:00)
DX: Z12.11 Encounter for screening for malignant neoplasm of colon (principal); D12.0 Benign neoplasm of cecum; K63.89 Other specified diseases of intestine
CPT/HCPCS: 45380; 88305; J2001; J2704

== ENCOUNTER 2024-10-21 03:34 | Outpatient (CLI) | payer MEDICARE, BC, SELFPAY ==
[2024-10-21 08:36] LABS: Anion Gap 7.7 mmol/L (3-11); BUN 11 mg/dL (7-18); CO2 27.3 mmol/L (21.0-32.0); CREATININE 0.9 mg/dL (0.55-1.02); Calcium 9.1 mg/dL (8.5-10.1); Calculated LDL 113 mg/dL (<100); Chloride 105 mmol/L (98-107); Cholesterol 224 mg/dL (<200); Estimated GFR 70.51 (mL/min/1.73m2); Glucose 96 mg/dL (74-106); HDL Cholesterol 97 mg/dL (40-60); Potassium 4.1 mmol/L (3.5-5.1); Sodium 140 mmol/L (136-145); Triglyceride 72 mg/dL (<150)
== END 2024-10-21 03:35 | disposition home or self-care (01) ==
LOC: LBO 03:35
PROVIDERS: PCP Nurse Practitioner Family; Visit Provider Nurse Practitioner Family
DX: E78.5 Hyperlipidemia, unspecified (principal)
CPT/HCPCS: 36415; 80048; 80061

== ENCOUNTER 2024-10-24 01:44 | Outpatient (CLI) | payer MEDICARE, BC, SELFPAY ==
--- NOTE | 2024-10-24 07:45 | DI.DEXA_ITS ---
Exam(s) XR DEXA BONE DENSITY W/WO SHABANA EXAM: XR DEXA BONE DENSITY W/WO SHABANA CLINICAL HISTORY: screening FOR OSTEOPOROSIS IN POSTMENOPAUSAL STATUS,Z78.0 TECHNIQUE: COMPARISON: No exams were available for comparison FINDINGS: Lateral Spine Image: Unremarkable. No compression deformities identified. Left hip: Total T-Score: -1.1 Total Z-Score: 0.2 T- and Z-scores: Findings are consistent with osteopenia. No evidence of osteoporosis. Lumbar Spine: Total T-Score: -2.4. There is osteoporosis in the L4 vertebral body with a T-score of -2.7. Total Z-Score: -0.5 T- and Z-scores: There is osteoporosis seen in the L4 vertebral body. Left forearm: Osteoporosis is seen in the mid left forearm with a T-score of -2.5. IMPRESSION: Osteoporosis seen in the L4 vertebral body and the mid left forearm.
== END 2024-10-24 02:04 ==
LOC: DI 01:44
PROVIDERS: PCP Nurse Practitioner Family; Visit Provider Nurse Practitioner Family
DX: Z78.0 Asymptomatic menopausal state (principal); Z13.820 Encounter for screening for osteoporosis; M85.89 Other specified disorders of bone density and structure, multiple sites
CPT/HCPCS: 77080

== ENCOUNTER 2025-09-16 01:18 | Outpatient (CLI) | payer MEDICARE, BC, SELFPAY ==
[2025-09-16 08:23] LABS: ALT 26 U/L (14-59); AST 27 U/L (15-37); Albumin 3.7 g/dL (3.4-5.0); Alkaline Phosphatase 83 U/L (46-116); Anion Gap 6.3 mmol/L (3-11); BUN 18 mg/dL (7-18); Bilirubin, Total 0.5 mg/dL (0.2-1.0); CO2 30.7 mmol/L (21.0-32.0); Calcium 9.2 mg/dL (8.5-10.1); Calculated LDL 136 mg/dL (<100); Chloride 104 mmol/L (98-107); Cholesterol 231 mg/dL (<200); Estimated GFR 70.07 (mL/min/1.73m2); Glucose 90 mg/dL (74-106); HDL Cholesterol 85 mg/dL (>or=50); Potassium 4.0 mmol/L (3.5-5.1); Sodium 141 mmol/L (136-145); Total Protein 7.0 g/dL (6.4-8.2); Triglyceride 51 mg/dL (<150)
== END 2025-09-16 01:19 | disposition home or self-care (01) ==
LOC: LBO 01:18
PROVIDERS: PCP Nurse Practitioner Family; Visit Provider Nurse Practitioner Family
DX: E78.5 Hyperlipidemia, unspecified (principal); R11.0 Nausea
CPT/HCPCS: 36415; 80053; 80061